=== PATIENT | male | born 1990 | race Caucasian/White ===

== ENCOUNTER 2019-03-03 14:25 | Outpatient (CLI) | payer SELFPAY ==
--- NOTE | 2019-03-03 14:30 | DI.RAD_ITS ---
EXAM: XR TOE LT GREAT INDICATION: left great toe blunt trauma. S99.929A, dropped pipe on foot. COMPARISON: No exams were available for comparison TECHNIQUE: 2D digital imaging was performed. FINDINGS: There is a comminuted intraarticular fracture at the base of the distal phalanx of the great toe. Th ere is minimal separation of fracture fragments. There is no significant separation at the articular surface. The proximal phalanx appears intact. IMPRESSION: Intraarticular fracture at the base of the distal phalanx of the great toe.
== END 2019-03-03 14:45 ==
PROVIDERS: PCP Family Medicine; Visit Provider Family Medicine
DX: S90.112A Contusion of left great toe without damage to nail, initial encounter (principal); S99.922A Unspecified injury of left foot, initial encounter; S92.422A Displaced fracture of distal phalanx of left great toe, initial encounter for closed fracture
CPT/HCPCS: 73660

== ENCOUNTER 2019-04-15 10:52 | Outpatient (CLI) | payer SELFPAY ==
--- NOTE | 2019-04-15 11:20 | DI.RAD_ITS ---
EXAM: XR TOE RT GREAT INDICATION: f/u. COMPARISON: No exams were available for comparison TECHNIQUE: 2D digital imaging was performed. FINDINGS: Comminuted fracture at the base of the distal phalanx of the great toe is again noted. There is some increased separation of fracture fragments when compared with the previous exam 03 March 2019. 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
== END 2019-04-15 11:12 ==
PROVIDERS: PCP Family Medicine; Visit Provider Orthopaedic Surgery
DX: S92.422D Displaced fracture of distal phalanx of left great toe, subsequent encounter for fracture with routine healing (principal); M85.88 Other specified disorders of bone density and structure, other site
CPT/HCPCS: 73660

== ENCOUNTER 2019-12-16 14:19 | Outpatient (CLI) | payer SELFPAY ==
--- NOTE | 2019-12-16 15:30 | DI.RAD_ITS ---
EXAM: XR HAND LT COMPLETE CLINICAL HISTORY: finger injury c/o fracture, r/o dislocation, M79.645 PAIN LT FINGER. TECHNIQUE: 2D digital imaging was performed. COMPARISON: No exams were available for comparison FINDINGS: There is a comminuted fracture of the proximal phalanx of the ring finger. There is mild displacemen t and angulation. No additional fractures are seen. IMPRESSION: Fracture of the proximal phalanx the ring finger. DATA REPOSITORY: RADIATION DOSE DELIVERED:
== END 2019-12-16 14:39 ==
PROVIDERS: PCP Family Medicine; Visit Provider Physician Assistant
DX: S62.615A Displaced fracture of proximal phalanx of left ring finger, initial encounter for closed fracture (principal)
CPT/HCPCS: 73130

== ENCOUNTER 2019-12-18 11:09 | Outpatient (CLI) | payer SELFPAY ==
--- NOTE | 2019-12-18 10:15 | DI.RAD_ITS ---
EXAM: XR FINGER LT RING INDICATION: F/U FRACTURE. COMPARISON: CR XR HAND LT COMPLETE from 12/16/2019 TECHNIQUE: 2D digital imaging was performed. FINDINGS: There is overlap of the proximal phalanges on the lateral view. There has been no change in the ali gnment of the comminuted fracture of the proximal phalanx of the ring finger. No significant dorsal angulation is appreciated on the lateral view. DATA REPOSITORY: RADIATION DOSE DELIVERED:
== END 2019-12-18 11:29 ==
PROVIDERS: PCP Family Medicine; Referring Provider Family Medicine; Visit Provider Student in an Organized Health Care Education/Training Program
DX: S62.615A Displaced fracture of proximal phalanx of left ring finger, initial encounter for closed fracture (principal)
CPT/HCPCS: 73140

== ENCOUNTER 2019-12-31 15:47 | Outpatient (CLI) | payer SELFPAY ==
--- NOTE | 2019-12-31 15:30 | DI.RAD_ITS ---
EXAM: XR FINGER LT RING EXAM DATE/TIME: CLINICAL HISTORY: fu fracture. TECHNIQUE: 2D digital imaging was performed. COMPARISON: None. FINDINGS: BONES: There has been no significant change in appearance of the comminuted fracture involving the pr oximal phalanx of the left ring finger. No bony destructive lesion is seen. JOINTS: No dislocation is present. SOFT TISSUE: Normal. IMPRESSION: Stable proximal phalangeal fracture. DATA REPOSITORY: RADIATION DOSE DELIVERED:
== END 2019-12-31 16:07 ==
PROVIDERS: PCP Family Medicine; Referring Provider Family Medicine; Visit Provider Student in an Organized Health Care Education/Training Program
DX: S62.615A Displaced fracture of proximal phalanx of left ring finger, initial encounter for closed fracture (principal)
CPT/HCPCS: 73140

== ENCOUNTER 2020-03-08 09:19 | Outpatient (CLI) | payer SELFPAY ==
[2020-03-10 11:54] LABS: Patient Race White; SARS-CoV-2 RNA Undetected (Undetected); SARS-CoV-2 Specimen Source Nasal
== END 2020-03-08 09:39 ==
PROVIDERS: PCP Family Medicine; Visit Provider Family Medicine
DX: Z11.59 Encounter for screening for other viral diseases (principal)
CPT/HCPCS: U0003

== ENCOUNTER 2021-09-19 21:26 | Emergency (ER) | payer OTHER, SELFPAY ==
[2021-09-19 21:34] VITALS: BP 144/89; PULSE 61; RESP 14; TEMP 36.5; O2SAT 98
--- NOTE | 2021-09-19 21:45 | DI.RAD_ITS ---
Exam(s) XR KNEE RT 3V AP,LAT,ZULMA EXAM: XR KNEE RT 3V AP,LAT,ZULMA CLINICAL HISTORY: R knee pain/ R/O effusion. TECHNIQUE: 2D digital imaging was performed. COMPARISON: No exams were available for comparison FINDINGS: 3 views There is no evidence of fracture. No prominent joint effusion noted. No obvious degenerative change s. No osteochondral defects. . There is mild cortical thickening on posterior aspect proximal tibia, possibly significant. IMPRESSION: As above. If clinically indicated additional views of the tibia-fibula can be performed. DATA REPOSITORY: RADIATION DOSE DELIVERED:
--- NOTE | 2021-09-19 21:46 | W.ED.GENAD ---
Discharge Plan Disposition Patient Disposition: HOME Condition: Stable Discharge Details Clinical Impression: Right knee sprain Primary Care Provider: Natalya Saeed ED Provider: Jenelle Toth Home Meds and New Rx's Prescriptions: No Action ibuprofen 200 MG tablet 400 mg PO PRN PRN acetaminophen 500 mg Tablet 500 mg PO Q6H PRN Discharge Instructions Instructions: Knee Sprain (ED) Additional Instructions: Use the hinged knee brace as instructed for comfort. Rest ice compression elevation. If continued pain/swelling or difficulty ambulating or walking, please follow-up with orthopedics in the next 1 to 2 weeks. Follow up with primary care provider/ Orthopedics in 3-5 days. Return to ED sooner if any worsening or concerns. Increase oral fluids. Please take Tylenol or Ibuprofen with food every 4-6 hours as needed for pain and swelling. Stand Alone Forms: Work Release Referrals: Vidal Robertson MD [ [facility] STAFF PHYSICIAN] - 2 weeks Medical Decision Making X-ray ordered 3 view, I do suspect a sprain. Hinged knee brace ordered. HPI General Mode of arrival: ambulatory. Date/Time Provider Initiated Documentation: 09/19/21 21:32. Limitations to Documentation: no limitations. Information obtained by: patient, RN notes reviewed and old records reviewed. HPI Narrative: 31-year-old male presents to the ER with chief complaint of right knee pain which occurred at 3:00 this afternoon. He reports he was running playing kickball when he hyperextended his right knee he reports hearing a crack. Since then he has had some swelling to the posterior aspect of his knee and medial aspect of the joint. He is able to ambulate with discomfort. No significant joint instability noted on exam no significant or obvious deformity. CMS is intact. He did take some ibuprofen approximately around 3:00. Related Data Home Medications Medication Instructions Recorded Confirmed ibuprofen 200 mg tablet 400 mg PO PRN PRN 12/21/15 09/19/21 acetaminophen 500 mg tablet 500 mg PO Q6H PRN 09/19/21 09/19/21 Allergies Allergy/AdvReac Type Severity Reaction Status Date / Time No Known Allergies Allergy Verified 09/19/21 21:38 General Stated Complaint: Orthopedic HOLLY: 4 Review of Systems Musculoskeletal Musculoskeletal: Reports as per HPI, Reports arthralgias and Reports joint swelling PFSH All Active Problems (Updated 09/19/21 @ 22:48 by Jenelle Toth) Right knee sprain (Acute) No-show for appointment (Acute) Fracture of proximal phalanx of finger of left hand (Acute 12/15/19) Finger pain, left (Acute) Influenza A (H5N1) (Acute) Fractured great toe (Acute) Family History Mother No problems noted. Father No problems noted. Sister No problems noted. Sister No problems noted. Brother Substance abuse Grandfather No problems noted. Grandfather No problems noted. Grandmother No problems noted. Grandmother Asthma Daughter No problems noted. Social History Smoking/Tobacco Use Status: Never Smoking risk assessment performed?: Yes Alcohol Intake: current Alcohol Intake frequency: a few times a month Alcohol type: other Drug use: Never Substance use type: does not use Details: Drinks hard ciders. Do you feel safe at home: Yes Do you feel safe in your relationship?: Yes Exam Extrem General: normal to inspection Right lower extremity: knee Details: tenderness Location: of the medial joint line, swelling Location: of the popliteal fossa and of the infrapatellar area and knee ligament exam normal; Peter's Test not performed, no abrasions, no lacerations, no ecchymosis, no crepitus, no deformity and no unusual warmth Course Vital Signs Vital signs: Vital Signs Temperature 36.5 C 09/19/21 21:34 Pulse 61 09/19/21 21:34 Respiratory Rate 14 09/19/21 21:34 Blood Pressure 144/89 H 09/19/21 21:34 Pulse Oximetry 98 09/19/21 21:34 Temperature 36.5 C 09/19/21 21:34 Temperature Source Oral 09/19/21 21:34 Pulse 61 09/19/21 21:34 Respiratory Rate 14 09/19/21 21:34 Respiratory Effort Non-Labored 09/19/21 21:40 Blood Pressure 144/89 H 09/19/21 21:34 Blood Pressure Position Sitting 09/19/21 21:34 Pulse Oximetry 98 09/19/21 21:34 Oxygen Delivery Method Room Air 09/19/21 21:34 Oxygen Flow Rate 0 09/19/21 21:34 Pain Level 7 09/19/21 21:40 PAWSS Have you Been Recently Intoxicated or Drunk Within the Last 30 days?: No Have you Ever Experienced Previous Episodes of Alcohol Withdrawal?: No Have you ever Experienced Withdrawal Seizures?: No Have you ever Experienced Delirium Tremens(DT)s?: No Have you ever undergone Alcohol Rehabilitation Treatment (i.e, inpt ot outpatient treatment programs)?: No Have you ever Experienced Blackouts?: No Have you ever Combined Alcohol with other Downers within the last 90 days?: No Have you ever Combined Alcohol with any other Substance of Abuse during the last 90 days?: No Positive Blood Alcohol level on Presentation? [PCS.BAL]: No Evidence of Increased Autonomic Activity (i.e. HR>120, tremor, sweating, agitation, nausea)?: No Result: 0
[2021-09-19] MEDS: Acetaminophen 325 MG TAB 650 MG PO (22:26)
[2021-09-19 23:05] VITALS: BP 144/89; PULSE 61; RESP 14; TEMP 36.5; O2SAT 98
--- NOTE | 2021-09-19 23:53 | DI.VRAD_ITS ---
PROCEDURE INFORMATION: Exam: XR Right Knee Exam date and time: 09/19/2021 10:10 PM Age: 31 years old Clinical indication: Right; Patient HX: R knee pain, R/O effusion TECHNIQUE: Imaging protocol: XR Right knee. Views: 3 views. COMPARISON: CR XR TOE RT GREAT 04/15/2019 11:20 AM FINDINGS: Bones/joints: There is cortical thickening noted at the posterior margin of the proximal tibia (image 1, series 3). There is also a linear horizontal region of faint sclerosis in the proximal tibia seen predominantly on the lateral view, but also seen on the AP view. Soft tissues: Normal. IMPRESSION: 1. No evidence of displaced fracture or joint dislocation. 2. Mild sclerosis at the posterior margin of the tibia and horizontal sclerosis in this region. Correlate with clinical findings to evaluate for possible stress fractures/stress remodeling. Dictated and Authenticated by: Pauly Yanez MD. Ordering:JESSICA Almanzar MD
== END 2021-09-19 23:05 | disposition home or self-care (01) ==
PROVIDERS: Emergency Provider Registered Nurse Emergency; PCP Family Medicine
DX: S83.8X1A Sprain of other specified parts of right knee, initial encounter (principal); X50.1XXA Overexertion from prolonged static or awkward postures, initial encounter
CPT/HCPCS: 29505; 73562; 99283

== ENCOUNTER → 2021-11-09 02:00 | Outpatient (CLI) | payer OTHER, SELFPAY ==
--- NOTE | 2021-11-09 08:00 | DI.MRI_ITS ---
Exam(s) MR LOWER JOINT RT WO EXAM: MR LOWER JOINT RT WO CLINICAL HISTORY: PAIN, INJURY,RT KNEE SPRAIN, S83.91XA. TECHNIQUE: Multiplanar multisequence MRI was performed. COMPARISON: CR,XR XR KNEE RT 3V AP,LAT,ZULMA from 09/19/2021 FINDINGS: BONES: There is edema in the medial tibial plateau, consistent with trabecular microfracture. There is also mild edema in the medial femoral condyle consistent with contusion. JOINTS: Articular cartilage is unremarkable. No joint effusion is present. TENDONS: Extensor mechanism: Unremarkable. Medial retinaculum: Unremarkable. Lateral retinaculum: Unremarkable. Popliteus: Unremarkable. MUSCLES: Unremarkable. MENISCI: The medial meniscus is unremarkable. The lateral meniscus is unremarkable. SOFT TISSUES: Mild edema anterior to the patellar tendon. Synovial cyst or ganglion seen posterior t o medial femoral condyle. LIGAMENTS: Anterior Cruciate: Mild edema around the ACL but no visible focal tear. Posterior Cruciate: Unremarkable. Medial Collateral:Unremarkable. Lateral Collateral: The IT band is intact. There is a severe partial tear at the distal fibular janette ateral at the insertion at the tip of the fibula as well as edema in the distal hamstring tendon was also could be partially torn. IMPRESSION: Trabecular microfracture of the anterior aspect of medial tibial plateau. Mild contusion of the ante rior aspect of the medial femoral condyle. Severe partial tears of the hamstring tendon and fibular collateral ligament. Mild ACL sprain. No m eniscal tear. DATA REPOSITORY:
== END ==
PROVIDERS: PCP Family Medicine; Visit Provider Physician Assistant Surgical
DX: S82.141A Displaced bicondylar fracture of right tibia, initial encounter for closed fracture (principal); S76.311A Strain of muscle, fascia and tendon of the posterior muscle group at thigh level, right thigh, initial encounter; X58.XXXA Exposure to other specified factors, initial encounter; S83.421A Sprain of lateral collateral ligament of right knee, initial encounter; S83.511A Sprain of anterior cruciate ligament of right knee, initial encounter
CPT/HCPCS: 73721

== ENCOUNTER 2023-01-03 15:02 | Outpatient (CLI) | payer SELFPAY ==
--- NOTE | 2023-01-03 14:45 | DI.RAD_ITS ---
Exam(s) XR KNEE RT 2V AP,LAT EXAM: XR KNEE RT 2V AP,LAT CLINICAL HISTORY: RIGHT KNEE PAIN. TECHNIQUE: 2D digital imaging was performed of the right knee. Two views obtained. AP and lateral views were obtained. COMPARISON: CR,XR XR KNEE RT 3V AP,LAT,ZULMA from 09/19/2021 FINDINGS: BONES: No acute fracture is present. No bony destructive lesion is seen. JOINTS: The knee is normally aligned. No joint effusion is seen. SOFT TISSUE: Normal. IMPRESSION: Unremarkable radiographs of the right knee. DATA REPOSITORY: RADIATION DOSE DELIVERED:
== END 2023-01-03 15:03 | disposition home or self-care (01) ==
LOC: DIORS 15:02
PROVIDERS: PCP Family Medicine; Visit Provider Student in an Organized Health Care Education/Training Program
DX: S80.01XA Contusion of right knee, initial encounter (principal); X58.XXXA Exposure to other specified factors, initial encounter
CPT/HCPCS: 73560

== ENCOUNTER 2023-09-19 14:51 | Outpatient (CLI) | payer SELFPAY ==
--- NOTE | 2023-09-19 08:30 | DI.RAD_ITS ---
Exam(s) XR ANKLE LT COMPLETE EXAM: XR ANKLE LT COMPLETE CLINICAL HISTORY: LEFT ANKLE PAIN. TECHNIQUE: 2D digital imaging was performed. COMPARISON: No exams were available for comparison FINDINGS: 3 views No evidence of fracture or widening of the ankle mortise. Talar dome unremarkable. No obvious degen erative changes. No osseous lesion bone density normal. No osseous tarsal coalition. IMPRESSION: No significant osseous findings in the ankle. DATA REPOSITORY: RADIATION DOSE DELIVERED:
== END 2023-09-19 14:52 | disposition home or self-care (01) ==
LOC: DIORS 14:51
PROVIDERS: PCP Family Medicine; Visit Provider Student in an Organized Health Care Education/Training Program
DX: M25.572 Pain in left ankle and joints of left foot (principal)
CPT/HCPCS: 73610

== ENCOUNTER 2024-11-19 15:29 | Outpatient (CLI) | payer BC, SELFPAY ==
[2024-11-19 15:20] LABS: Cholesterol 183 mg/dL (<200); HDL Cholesterol 40 mg/dL (>or=40); Triglyceride 445 mg/dL (<150)
[2024-11-19 16:04] LABS: Hemoglobin A1C 5.3 % (<5.7)
[2024-11-20 18:39] LABS: LDL CHOLESTEROL 107 mg/dL (<100)
== END 2024-11-19 15:30 | disposition home or self-care (01) ==
LOC: LBO 15:29
PROVIDERS: PCP Nurse Practitioner Family; Visit Provider Nurse Practitioner Family
DX: Z13.220 Encounter for screening for lipoid disorders (principal); Z13.1 Encounter for screening for diabetes mellitus
CPT/HCPCS: 36415; 80061; 83721; 83036